=== PATIENT | female | born 1970 | race Caucasian/White ===

== ENCOUNTER 2016-12-24 01:17 | Emergency (ER) | payer OTHER ==
[~2016-12-24] VITALS: Ht 160 cm; Wt 72.5 kg
[2016-12-24] MEDS ORDERED: AMLO-512 PO (01:24)
[2016-12-24 03:25] VITALS: BP 133/67
[2016-12-24] MEDS ORDERED: GuaiFENesin/D-METHORPHAN [SUGAR-FREE] 200-20MG/10 ML SYRUP UDCUP PO ONE (04:00)
[2016-12-24] MEDS ORDERED: IBUPROFEN 600 MG TABLET PO ONE (04:00)
[2016-12-24] MEDS ORDERED: ACETAMINOPHEN/CODEINE 300-30 MG TABLET PO ONE (04:00)
== END 2016-12-24 04:11 | disposition home or self-care (01) ==
LOC: EMS 01:23
DX: J06.9 Acute upper respiratory infection, unspecified (principal); J02.9 Acute pharyngitis, unspecified; I10 Essential (primary) hypertension; Z88.5 Allergy status to narcotic agent
CPT/HCPCS: 99284

== ENCOUNTER 2022-04-24 21:37 | Emergency (ER) | payer MEDICAID, OTHER ==
[~2022-04-24] VITALS: Ht 162.6 cm; Wt 52.3 kg
[~2022-04-24 21:37] MED LIST: AMLO-258 PO
[2022-04-24 21:42] VITALS: BP 145/89
[2022-04-24] MEDS ORDERED: LISI-659 PO (21:45)
[2022-04-24 21:50] LABS: COVID AG,FIA SOURCE NASAL SWAB
[2022-04-24 22:12] LABS: INFLUENZA TYPE A NEGATIVE FOR TYPE A (NEGATIVE); INFLUENZA TYPE B NEGATIVE FOR TYPE B (NEGATIVE)
[2022-04-24] MEDS ORDERED: BENZ1LOZ77 PO (22:37)
[2022-04-24] MEDS ORDERED: BENZ-70 PO (22:37)
[2022-04-24] MEDS ORDERED: IBUP-2070 PO (22:37)
== END 2022-04-24 22:40 | disposition home or self-care (01) ==
LOC: EMS 21:42
DX: J06.9 Acute upper respiratory infection, unspecified (principal); I10 Essential (primary) hypertension; Z88.5 Allergy status to narcotic agent; Z20.822 Contact with and (suspected) exposure to COVID-19
CPT/HCPCS: 87804; 99283